=== PATIENT | male | born 1990 | race Two or more races ===

== ENCOUNTER 2023-12-23 17:03 | Emergency (ER) | payer MEDICAID, OTHER ==
[~2023-12-23] VITALS: Ht 170.2 cm; Wt 810.6 kg
[2023-12-23] MEDS ORDERED: ACET-2605 PO (19:51)
[2023-12-23] MEDS ORDERED: IBUP-1490 PO (19:51)
[2023-12-23 19:57] VITALS: BP 128/78; TEMP 97.1; O2SAT 99
[2023-12-23] MEDS: NAPROXEN 250 MG TABLET PO ONE (20:01)
[2023-12-23] MEDS: HYDROCODONE/APAP 5/325MG TABLET PO ONE (20:02)
== END 2023-12-23 20:02 | disposition home or self-care (01) ==
LOC: ER 17:15
DX: S93.401A Sprain of unspecified ligament of right ankle, initial encounter (principal); M71.521 Other bursitis, not elsewhere classified, right elbow; W06.XXXA Fall from bed, initial encounter; Y93.89 Activity, other specified; Y92.89 Other specified places as the place of occurrence of the external cause; Y99.8 Other external cause status
CPT/HCPCS: 73080-TC; 73610-TC